=== PATIENT | male | born 1965 | race Caucasian/White ===

== ENCOUNTER → 2024-05-29 15:01 | Outpatient (REF) | payer OTHER, SELFPAY | LOC: HWRAD 15:01 | PROVIDERS: ATTENDING PHYSICIAN Nurse Practitioner Family | DX: M25.512 Pain in left shoulder (principal) | CPT/HCPCS: 73030 ==

== ENCOUNTER → 2024-08-26 13:40 | Outpatient (REF) | payer OTHER, SELFPAY | LOC: RAD 13:40 | PROVIDERS: ATTENDING PHYSICIAN Physical Medicine & Rehabilitation; FAMILY PHYSICIAN Nurse Practitioner Family | DX: S43.439A Superior glenoid labrum lesion of unspecified shoulder, initial encounter (principal) | CPT/HCPCS: 23350; 73040; 73222 ==

== ENCOUNTER → 2024-11-26 09:24 | Outpatient (REF) | payer SELFPAY | LOC: HWRAD 09:24 | PROVIDERS: ATTENDING PHYSICIAN Nurse Practitioner Family | DX: Z12.5 Encounter for screening for malignant neoplasm of prostate (principal); E78.2 Mixed hyperlipidemia | CPT/HCPCS: 75571 ==

== ENCOUNTER → 2024-12-09 07:53 | Outpatient (REF) | payer OTHER, SELFPAY | LOC: DHCBC/DCA 07:53 | PROVIDERS: ATTENDING PHYSICIAN Nurse Practitioner Family | DX: R93.1 Abnormal findings on diagnostic imaging of heart and coronary circulation (principal) | CPT/HCPCS: 78452; 93017; A9500 ==

== ENCOUNTER → 2025-06-09 07:23 | Outpatient (REF) | payer OTHER, SELFPAY | LOC: HWRAD 07:23 | PROVIDERS: ATTENDING PHYSICIAN Nurse Practitioner Family | DX: M54.50 Low back pain, unspecified (principal) | CPT/HCPCS: 72110 ==

== ENCOUNTER → 2025-10-13 07:37 | Outpatient (REF) | payer OTHER, SELFPAY | LOC: MRI 07:37 | PROVIDERS: ATTENDING PHYSICIAN Nurse Practitioner Family; FAMILY PHYSICIAN Family Medicine | DX: M54.50 Low back pain, unspecified (principal); G89.29 Other chronic pain | CPT/HCPCS: 72148 ==

== ENCOUNTER 2025-10-28 05:48 | Day surgery (SDC) | payer OTHER, SELFPAY ==
[2025-10-22 12:33] VITALS: BMI 25.9
[2025-10-28] VITALS (8 sets, daily range): BP systolic 102–144; BP diastolic 62–83; BMI 25.9
[2025-10-28] MEDS: TYLENOL 1000 MG PO (06:29)
[2025-10-28] MEDS: NORMOSOL-R/PLASMALYTE-A 1000 IV (06:32)
--- NOTE | 2025-10-28 06:55 | W.SUR.PREOP ---
Pre-Operative Surgical Note
-
I have examined this patient prior to the performance of the scheduled procedure.
The patient's condition is unchanged from the time of the current History and
Physical and the patient is able to undergo the scheduled procedure.
--- NOTE | 2025-10-28 06:55 | HP.FOC2 ---
Focused History & Physical
Chief Complaint
HPI:
Chief Complaint: Left inguinal hernia
HPI / Indication for Planned Procedure: This is a 60-year-old male who presents with a symptomatic left inguinal hernia. Will plan for a robotic left inguinal hernia repair, possible right with mesh.
Relevant Past Medical History: Negative
Relevant Social History: Negative
Relevant Family History: Negative
Relevant Past Surgical History: Negative
Review of Systems
Review of Pertinent Systems: All Systems Negative
Medication
See Medication form for detailed medications: Yes
Medication List (including Herbals & OTC):
Fish Oil 1 dose PO DAILY 10/21/25
multivitamin 1 tab PO DAILY 10/21/25
turmeric 1 dose PO DAILY 10/21/25
valsartan 40 mg tablet 40 mg PO DAILY 10/21/25
Medications Reviewed: Yes
Allergies and Reactions
Patient has Allergies: No
Noted Allergies and Reactions:
Allergy/AdvReac Type Severity Reaction Status Date / Time
No Known Allergies Allergy Unverified 10/28/25 06:25
Pertinent Physical Exam
All Other Systems: Negative
Head/Neck: Normal
Diagnosis / Assessment
This is a 60-year-old male who presents with a symptomatic left inguinal hernia. Will plan for a robotic left inguinal hernia repair, possible right with mesh.
Plan / Procedure
This is a 60-year-old male who presents with a symptomatic left inguinal hernia. Will plan for a robotic left inguinal hernia repair, possible right with mesh.
Anesthesia/Sedation to be done by Anesthesia Provider: Yes
--- NOTE | 2025-10-28 08:23 | W.IMMPOSTOP ---
Surgical Immed Post Op Note
-
Primary Surgeon: Vinay Murillo MD
Assisting Surgeon: None
Pre-op Diagnosis: Left inguinal hernia
Post-op Diagnosis: Same
Procedure Performed: Robotic left inguinal hernia repair with mesh
Anesthesia Type: General
Specimen / Cultures: None
Estimated Blood Loss: 3 cc
Complications: None
Operative Findings: No hernia noted on the patient's right side, peritoneal lysed mesh could be seen extruding over the indirect canal. There was a medium sized indirect left inguinal hernia, small direct component as well as a small suprapubic
midline component containing preperitoneal fat. There was no femoral component and no cord lipoma. I did explore the contralateral direct space but encountered a mesh plug so no further dissection was performed. The n.p.o. was reinforced with a
large left Bard 3D max uncoated polypropylene midweight mesh.
--- NOTE | 2025-10-28 08:25 | OR.RPT ---
Operative Report
Operative Report
Patient Name: Glen Winter
: 1965
Date of Operation: 10/28/2025
Preoperative Diagnosis: Reducible Inguinal hernia, left
Postoperative Diagnosis: Same
Procedure(s):
Robotic Inguinal Hernia Repair with mesh, left (DOUG approach)
Surgeon(s):
Dr. Murillo
Ob/Gyn(s):
Katelyn Davis NP
Anesthesia: General
Estimated Blood Loss: 3 cc
Urine Output: None
Drains/Lines/Implants: Large 3D Max Bard mid weight uncoated polypropylene mesh
Specimens: None
Indication for surgery: The patient has a history of groin pain and noted on exam to have a Left inguinal Hernia(s). Following review of therapeutic options they have elected to undergo a minimally invasive repair. On the day of surgery, he did
endorse some right inguinal pain and was concern for a possible right inguinal hernia recurrence in the setting of a previous open repair so he was consented for possible right inguinal hernia repair as well.
Operative Findings: No hernia noted on the patient's right side, peritonealized mesh could be seen extruding over the indirect canal. There was a medium sized indirect left inguinal hernia, small direct component as well as a small suprapubic
midline component containing preperitoneal fat. There was no femoral component and no cord lipoma. I did explore the contralateral direct space but encountered a mesh plug so no further dissection was performed. The n.p.o. was reinforced with a
large left Bard 3D max uncoated polypropylene midweight mesh.
Details of the operation:
The patient was brought to the Operating Room and placed in the supine position with the arms tucked. IV antibiotics were infused and Venodyne stockings placed. Following uneventful induction of general endotracheal anesthesia, an orogastric tube
was placed. The abdomen was prepped and draped in the usual sterile fashion. The abdomen was entered using a Veress technique which required 1 pass, pneumoperitoneum to 15 mmHg was obtained without difficulty. An 8mm trochar was passed through the
abdominal wall roughly 20 cm cephalad to the inguinal canal. We then confirmed that no inadvertent injury was made while passing the trocar or Veress needle. We then placed two additional 8 mm ports in the left upper and right upper quadrants. We
then docked the robot with a Prograsper in the left hand port and monopolar scissors in the right. In the patient's right inguinal canal peritoneal covered mesh could be seen, there was no obvious indirect recurrence. There was a medium sized
indirect defect. We then began by creating a flap at the level of the ASIS on the left side laterally working our way medially to the medial umbilical fold. Staying onto the peritoneum we were able to circumferentially dissect around the hernia
sac and and peel it off of the underlying spermatic cord and testicular vessels, taking care to preserve them. Medially we identified the midline pubis as well as Ghassan's ligament and ensured to dissect 2 cm below the pubic rim over the bladder as
well as across the midline. On the contralateral side we encountered the mesh over the direct space and again no obvious hernia was identified so this portion of the dissection was stopped. After exposure of the entire myopectineal orifice we
identified and reduced: A medium sized indirect inguinal hernia, a small direct inguinal hernia, no femoral hernia, a small midline suprapubic defect containing preperitoneal fat which was reduced and no cord lipoma.
We then fixated a large 3D max mid weight mesh with a 2-0 Vicryl stitch at coopers medially and superior laterally. The flap was then closed with a running 2-0 barbed monocryl suture ensuring that the tail was cut flush with the medial fat pad so
that no barbs were exposed. During the closure of the flap an Angiocath was inserted and 20 cc of quarter percent Marcaine was instilled. The area in the flap cavity was then evacuated of air confirming that the mesh was flush and there were no
folds. A small rent in the peritoneum was noted and closed with 2-0 Vicryl. All needles and instruments were then removed and the robot was undocked. The abdomen was then desufflated, and pneumoperitoneum evacuated. All skin sites were then
closed with 4-0 Monocryl followed by Dermabond. Counts were correct and overall, the patient tolerated the procedure well and was taken to the Recovery Room postoperatively in stable condition.
I was the attending physician and performed the procedure with assistance of the BACK SEWER above. The assistance of Marina Davis NP was required due to the complexity of the procedure. During the procedure she assisted with port placement,
instrument and needle exchanges, and closure of the wound. I was present for all portions of the case, excluding skin closure.
Vinay Murillo MD
[2025-10-28] MEDS: MOTRIN 600 MG PO (09:29)
== END 2025-10-28 10:20 | disposition home or self-care (01) ==
LOC: SDS 05:48
PROVIDERS: ATTENDING PHYSICIAN Surgery; FAMILY PHYSICIAN Nurse Practitioner Family
DX: K40.90 Unilateral inguinal hernia, without obstruction or gangrene, not specified as recurrent (principal)
CPT/HCPCS: 49650; 36415; 93005